=== PATIENT | male | born 1945 | race Caucasian/White ===

== ENCOUNTER 2016-08-08 10:41 | Inpatient (IN) | payer MEDICARE, BC ==
[~2016-08-08] VITALS: Ht 177.8 cm; Wt 89.6 kg
[2016-08-08] VITALS (15 sets, daily range): BP systolic 121–160; BP diastolic 62–82; PULSE 60–108; RESP 12–18; Ht 177.8 cm; Wt 89.6 kg
[2016-08-08] MEDS ORDERED: SURGIFOAM POWDER 1 GM KIT ONE (11:53)
[2016-08-08] MEDS ORDERED: CEFAZOLIN 1 GM INJ ONE ×2 (11:53→15:54)
[2016-08-08] MEDS ORDERED: HEPARIN 1000 UNITS/ML 10 ML INJ ONE (11:53)
[2016-08-08] MEDS ORDERED: THROMBIN 5000 UNIT VIAL ONE (11:53)
[2016-08-08] MEDS ORDERED: BUPIVACAINE 0.25%/EPI (SDV) 30 ML INJ ONE (12:21)
[2016-08-08] MEDS ORDERED: FENTAnyl 50 MCG/ML VIAL ONE (12:27)
[2016-08-08] MEDS ORDERED: MIDAZOLAM 1 MG/ML 2 ML INJ ONE ×2 (12:27→17:07)
[2016-08-08] MEDS ORDERED: PHENYLephrine (100 MCG/ML) 5ML SYG ONE (13:02)
[2016-08-08] MEDS ORDERED: LIDOCAINE 2% (SDV) 5 ML INJ ONE (15:54)
[2016-08-08] MEDS ORDERED: ROCURONIUM 50 MG INJ ONE (15:54)
[2016-08-08] MEDS ORDERED: SUCCINYLCHOLINE CHLORIDE 100 MG/5 ML SYG IV ONE (15:54)
[2016-08-08] MEDS ORDERED: EPHEDrine SULFATE 50 MG/5 ML SYG ONE (15:54)
[2016-08-08] MEDS ORDERED: NEOSTIGMINE 3 MG/3 ML SYRINGE ONE (15:54)
[2016-08-08] MEDS ORDERED: GLYCOPYRROLATE 0.4 MG INJ ONE (15:54)
[2016-08-08] MEDS ORDERED: PROPOFOL 40 ML ONE (15:54)
--- NOTE | 2016-08-08 16:21 | OPR ---
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 Anterior lumbar interbody fusion L5-S1 2. Osteotomy L5-S1 3. Insertion interbody cage x 1 (Globus Indeoendence MIS 29 x 39 mm 15 degree lordotic 13 mm height cage 4. Placement of anterior instrumentation (Lumbar Anchors x3) Anesthesia: General Surgeon: Charly Woodard MD CoSurgeon: Rob Maki MD Indication for surgery: Patient known to me, with severe long standing LBP and Left lower extremity L5 radiculopathy extremity pain that failed to improve with conservative management. Risk and benefits if procedure discussed in detail and informed consent obtained. Procedure: the patient was brought to the operating room and after general anesthesia with endotracheal intubation was smoothly induced, the patient was positioned on the operative table. The arms were put to the side and the patient 's left flank and abdomen were prepped and draped in the usual fashion. Antibiotics were given and incision was made at the paramedian approach at L5- S1. After the exposure was completed, I performed a discectomy at L5-S1. The appropriate disc space was verified using fluoroscopy and spinal needle. The disc was incised using a sharp knife and a Macario elevator was used to elevate up the endplates. I then used a rongeur to remove the disc material and curved and straight curettes to evacuate the disc space. Osteotome was used to cut the bridging osteophytes to gain mobility. I then used the trial rasps to prepare and size the disc space and was able to place a 13 mm spacer. I then trialed a 15 deg lordotic size large cage.. This were checked for fit and placement under C arm control and I felt the 15 lordotic 13 mm cage large cage gained good lordosis and was an appropriate fit. I inserted the cage, filled with local bone from the osteotomy, , allograft bone chips and an extra small BMP. The lumbar anchors were placed under fluoro imaging. Additional frozen allograft was placed around and anterior to the cage in the disc space. I then removed the retractors. The wound was inspected for bleeders. The wound was irrigated. Sterile dressing was applied. EBL:150 mL Procedure Date: Aug 08, 2016 Anesthesia: general Estimated Blood Loss: 150 - 200 ml's Pt Condition Post Procedure: stable Disposition: PACU CHARLY WOODARD MD Aug 08, 2016 16:21
[2016-08-08] MEDS ORDERED: HYDROmorphONE (0.2 MG/ML) 10ML SYG IV PRN ×3 (16:30)
[2016-08-08] MEDS ORDERED: MEPERIDINE 25 MG INJ IV PRN (16:30)
[2016-08-08] MEDS ORDERED: FENTAnyl 50 MCG/ML VIAL IV PRN ×3 (16:30)
[2016-08-08] MEDS ORDERED: PROCHLORPERAZINE 10 MG TAB PO PRN (16:30)
[2016-08-08] MEDS ORDERED: NACL 0.9% 3 ML SYG IV SCH (16:30)
[2016-08-08] MEDS ORDERED: DIPHENHYDRAMINE 50 MG INJ IV PRN (16:30)
[2016-08-08] MEDS ORDERED: METOCLOPRAMIDE 10 MG INJ IV PRN (16:30)
[2016-08-08] MEDS ORDERED: NALOXONE (0.4 MG/ML) INJ IV PRN (16:30)
[2016-08-08] MEDS ORDERED: ONDANSETRON 4 MG INJ IV PRN ×2 (16:30)
[2016-08-08] MEDS ORDERED: ACETAMINOPHEN 325 MG TAB PO PRN (16:30)
--- NOTE | 2016-08-08 16:32 | RADRPT ---
PROCEDURE: Intraoperative imaging of the lumbar spine with fluoroscopy. CLINICAL INDICATION: Back pain. Intraoperative. TECHNIQUE: 2 images of the lumbar spine were obtained in the operating room with an image intensif ier. No radiologist was in attendance. 32.5 seconds of fluoroscopy time was used. COMPARISON: No prior study is available for comparison. FINDINGS: For the purposes of this report, the last apparent true disc level is considered to be L5-S1. Based on this, the fusion is at L5-S1. IMPRESSION: 1. Intraoperative imaging of the lumbar spine. RPTAT: QQ .Joel White MD, Date Time Electronically viewed and signed by .Joel White MD, on 08/08/2016 16:32 .R/
[2016-08-08] MEDS: HYDROmorphONE 0.2 MG/ML PCA IV SCH (16:42)
[2016-08-08 17:06] LABS: ADD UMIC YES; URINE BILIRUBIN (Dip) NEGATIVE (NEGATIVE); URINE BLOOD (Dip) 2+ (NEGATIVE); URINE COLOR YELLOW (YELLOW); URINE GLUCOSE (Dip) NEGATIVE (NEGATIVE); URINE KETONES (Dip) TRACE (NEGATIVE); URINE LEUKOCYTE ESTERASE (Dip) TRACE (NEGATIVE); URINE NITRITE (Dip) NEGATIVE (NEGATIVE); URINE TOTAL PROTEIN (Dip) TRACE (NEGATIVE); URINE UROBILINOGEN (Dip) 0.2 E.U./dL (0.1-1.0)
[2016-08-08 17:19] LABS: BACTERIA,URINE FEW; SQUAMOUS EPITHELIAL CELL,UR RARE
[2016-08-08] MEDS ORDERED: MIDAZOLAM 1 MG/ML 2 ML INJ IV ONE ×2 (17:30→18:00)
[2016-08-08] MEDS: CEFAZOLIN 1 GM/50 ML (PMX) 50 ML IVPB SCH (17:45)
--- NOTE | 2016-08-08 18:27 | OPR ---
DATE OF OPERATION: 08/08/2016 PREOPERATIVE DIAGNOSIS: Degenerative disk disease L5 to S1. POSTOPERATIVE DIAGNOSIS: Degenerative disk disease L5 to S1. PROCEDURE: Anterior retroperitoneal exposure, interbody fusion L5 to S1. SURGEON: Kami Duong MD COSURGEON: Orville Nieves MD ESTIMATED BLOOD LOSS: 100 mL. ANESTHESIA: General. CONSENT: Risks, benefits, complications, alternative therapies explained to the patient and the fam ijeoma, consent obtained. DESCRIPTION OF PROCEDURE: Timeout was called, antibiotics were given, we started. I made an 8 cm incision in the left lower quadrant. Incision was taken down to the subcutaneous tis kathrine, which was opened using electrocautery. Left anterior rectus sheath was opened using electrocau yuriy. The rectus sheath was mobilized superiorly and inferiorly. Retroperitoneal space was entered . Bookwalter retractor was placed retracting the bowel contents to the right, left rectus muscle to the left. We then proceeded with dissecting the left common iliac artery, external iliac artery, i nternal iliac artery. We ligated the middle sacral vessels. Exposure for L5 to S1 was obtained by retracting the right iliac vessels to the right and left iliac vessels to the left. We proceeded with diskectomy and placement of the new cage. Please refer to Dr. Nieves's dictat ion for the details of that operation. After all x-rays were satisfactory read by Dr. Nieves, ne edle counts and sponge counts were correct. There was good pulsation in the left common and externa l iliac artery. No evidence of any clinical DVT. The wound was irrigated using antibiotic solution . Anterior rectus sheath was closed using a #1 Vicryl suture in a running fashion with a few interr upted sutures in the middle. The wound was irrigated again and closed in 2 layers of 2-0 Vicryl sut ure for the subcutaneous and Steri-Strips for the skin. The patient tolerated the procedure well. Dictated By: KAMI DUONG MD FM/NTS Conf#: [id number] DID#: [id number]
[2016-08-09 00:01] VITALS: BP 130/64; RESP 20
[2016-08-09] MEDS: CEFAZOLIN 1 GM/50 ML (PMX) 50 ML IVPB SCH ×3 (00:30→11:24)
[2016-08-09] MEDS: HYDROmorphONE 0.2 MG/ML PCA IV SCH (05:34)
[2016-08-09 05:41] LABS: HEMATOCRIT 45.5 % (42.0-52.0); HEMOGLOBIN 15.6 g/dl (14.0-18.0)
[2016-08-09 05:56] LABS: POTASSIUM 4.5 mmol/L (3.5-5.1)
[2016-08-09 05:59] LABS: CALCIUM 9.4 mg/dl (8.4-10.2); CREATININE 1.04 mg/dl (0.61-1.24)
[2016-08-09 07:22] VITALS: BP 119/74; RESP 17
[2016-08-09] MEDS ORDERED: TAMSULOSIN (SR) 0.4 MG CAP PO SCH ×2 (08:30→21:00)
[2016-08-09] MEDS: HYDROCODONE/APAP (5/325) TAB PO PRN ×3 (08:49→20:06)
[2016-08-09] MEDS: DOCUSATE SODIUM 100 MG CAP PO SCH (20:06)
[2016-08-09 20:10] VITALS: BP 141/76; RESP 17
--- NOTE | 2016-08-09 20:32 | PN ---
Date/Time of Note Date/Time of Note DATE: 08/09/16 TIME: 20:31 Assessment/Plan Lines/Catheters IV Catheter Type (from Nrsg): Peripheral IV Stanton in Place (from Nrsg): No Assessment/Plan Chief Complaint/Hosp Course SP ALIF will continue ambulation pulm toilet Adv Diet as tolerated Problems: Subjective 24 Hr Interval Summary Constitutional: improved Pain Control: mild Exam/Review of Systems Vital Signs Vitals Vital Signs Date Time Temp Pulse Resp B/P Pulse Ox O2 Delivery O2 Flow Rate FiO2 08/09/16 13:00 18 08/09/16 07:22 97.9 77 119/74 96 08/08/16 18:42 Nasal Cannula 2.0 Intake and Output 08/08/16 08/08/16 08/09/16 15:00 23:00 07:00 Intake Total 1000 ml 220 ml Output Total 500 ml 450 ml Balance 500 ml -230 ml Exam Neck: non-tender, supple Respiratory: clear to auscultation, normal air movement Cardiovascular: nl pulses, regular rate and rhythm Results Result Diagram: 08/09/16 0445 08/09/16 0442 KAMI CROOK MD Aug 09, 2016 20:32
[2016-08-09] MEDS: ZOLPIDEM 5 MG TAB PO PRN (22:17)
[2016-08-10] MEDS: HYDROCODONE/APAP (5/325) TAB PO PRN ×6 (00:21→21:33)
--- NOTE | 2016-08-10 09:02 | RADRPT ---
PROCEDURE: XR lumbar spine CLINICAL INDICATION: Postop lumbar spine surgery TECHNIQUE: 2 views of the lumbar spine were obtained COMPARISON: Intraoperative fluoroscopy 08/08/2016 FINDINGS: Postoperative changes present with interbody spacer associated fixation screws at the L5-S1 level. Hardware is intact. There are overlying anterior surgical clips. No fracture is seen. There is mi ld levoconvex scoliosis with preservation of the lordosis of the lumbar spine. Alignment appears in tact. Vertebral bodies are maintained in height. Anterior spondylosis is seen down to the L4-5 lev el. There is mild disk space narrowing at L2-3. IMPRESSION: Status post interbody fusion at L5-S1. Lumbar spondylosis, with mild levoconvex scoliosis. RPTAT: VV .Won Humphrey MD, Date Time Electronically viewed and signed by .Won Humphrey MD, on 08/10/2016 09:01 .O/
[2016-08-10] MEDS: DOCUSATE SODIUM 100 MG CAP PO SCH ×2 (09:05→21:02)
[2016-08-10 10:32] VITALS: BP 131/63; RESP 18
[2016-08-10] MEDS: RANITIDINE 150 MG TAB PO SCH ×2 (12:50→21:00)
--- NOTE | 2016-08-10 18:31 | PN ---
Date/Time of Note Date/Time of Note DATE: 08/10/16 TIME: 18:30 Assessment/Plan Lines/Catheters IV Catheter Type (from Nrsg): Peripheral IV Stanton in Place (from Nrsg): No Assessment/Plan Chief Complaint/Hosp Course SP ALIF will continue ambulation pulm toilet Adv Diet as tolerated Problems: Subjective 24 Hr Interval Summary Constitutional: improved Pain Control: mild Exam/Review of Systems Vital Signs Vitals Vital Signs Date Time Temp Pulse Resp B/P Pulse Ox O2 Delivery O2 Flow Rate FiO2 08/10/16 10:32 98.2 80 18 131/63 96 08/09/16 20:10 Room Air 08/08/16 18:42 2.0 Intake and Output 08/09/16 08/09/16 08/10/16 14:59 22:59 06:59 Intake Total 50 ml 800 ml 700 ml Output Total 100 ml 1400 ml Balance 50 ml 700 ml -700 ml Exam ENMT: mucosa pink and moist, nl external ears & nose, nl lips & teeth, nl nasal mucosa & septum Neck: non-tender, supple Respiratory: clear to auscultation, normal air movement Cardiovascular: nl pulses, regular rate and rhythm Results Result Diagram: 08/09/16 0445 08/09/16 0442 KAMI CROOK MD Aug 10, 2016 18:31
[2016-08-10 19:00] VITALS: BP 142/85; RESP 19
[2016-08-10] MEDS: TAMSULOSIN (SR) 0.4 MG CAP PO SCH (21:02)
[2016-08-11] MEDS: HYDROCODONE/APAP (5/325) TAB PO PRN ×5 (01:24→20:36)
[2016-08-11] MEDS: ZOLPIDEM 5 MG TAB PO PRN (02:15)
[2016-08-11 07:56] VITALS: BP 124/77; RESP 18
[2016-08-11 08:02] VITALS: BP 107/53; RESP 18
[2016-08-11 08:08] VITALS: BP 135/87; RESP 18
[2016-08-11] MEDS: DOCUSATE SODIUM 100 MG CAP PO SCH ×2 (08:13→20:27)
[2016-08-11] MEDS: RANITIDINE 150 MG TAB PO SCH ×2 (08:23→20:27)
--- NOTE | 2016-08-11 12:54 | PDOCDIS ---
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
[2016-08-11] MEDS ORDERED: DOCU-144 PO (12:59)
[2016-08-11] MEDS ORDERED: TAMS-14 PO (12:59)
[2016-08-11] MEDS ORDERED: HYDR-3498 PO (12:59)
[2016-08-11 19:58] VITALS: BP 125/79; RESP 19
[2016-08-11] MEDS: TAMSULOSIN (SR) 0.4 MG CAP PO SCH (20:27)
[2016-08-11] MEDS ORDERED: BISACODYL 10 MG SUPP PR PRN (21:00)
[2016-08-11] MEDS ORDERED: MAGNESIUM HYDROXIDE 30ML CUP PO PRN (21:00)
[2016-08-11 21:04] VITALS: PULSE 90
[2016-08-12] MEDS: ZOLPIDEM 5 MG TAB PO PRN (02:44)
[2016-08-12] MEDS: HYDROCODONE/APAP (5/325) TAB PO PRN ×2 (02:45→08:26)
[2016-08-12 07:56] VITALS: BP 113/60; RESP 20
[2016-08-12] MEDS: DOCUSATE SODIUM 100 MG CAP PO SCH (08:26)
[2016-08-12] MEDS: RANITIDINE 150 MG TAB PO SCH ×2 (08:26→08:28)
[2016-08-12 08:35] VITALS: BP 138/76; PULSE 90; RESP 18
== END 2016-08-12 10:15 | disposition home or self-care (01) | DRG 460 ==
LOC: REC 10:41 → MS1 18:15
PROVIDERS: ADMIT Orthopaedic Surgery; ATTEND Orthopaedic Surgery
PROC: 0SB40ZZ Excision of Lumbosacral Disc, Open Approach (ICD-10-PCS; 2016-08-08)
PROC: 0SG30A0 Fusion of Lumbosacral Joint with Interbody Fusion Device, Anterior Approach, Anterior Column, Open Approach (ICD-10-PCS; principal; 2016-08-08 12:30)
DX: M51.17 Intervertebral disc disorders with radiculopathy, lumbosacral region (principal); M47.27 Other spondylosis with radiculopathy, lumbosacral region; M48.07 Spinal stenosis, lumbosacral region
CPT/HCPCS: 72100; 80048; 81001; 81003; 85014; 85018; 86850; 86900; 86901; 86920; 97116; 97163; 97530; A4310; C1762; J0330; J0690; J1170; J1200; J1644; J2175; J2250; J2370; J2710; J3010; L8699

== ENCOUNTER 2016-08-26 08:13 | Inpatient (IN) | payer MEDICARE, BC ==
[~2016-08-26] VITALS: Ht 177.8 cm; Wt 92.9 kg
[2016-08-26 09:00] VITALS: BP 155/80; PULSE 83; RESP 18
[2016-08-26] MEDS ORDERED: HYDROmorphONE 1 MG/ML SYG IV STA (09:15)
[2016-08-26] MEDS ORDERED: HYDROmorphONE 1 MG/ML SYG IV PRN (09:30)
[2016-08-26] MEDS ORDERED: HYDROmorphONE 0.2 MG/ML PCA IV SCH (09:30)
[2016-08-26] MEDS: HYDROmorphONE 0.2 MG/ML PCA IV SCH ×2 (11:17→20:55)
[2016-08-26] MEDS ORDERED: GABAPENTIN 300 MG CAP PO SCH ×2 (12:00)
--- NOTE | 2016-08-26 12:19 | RADRPT ---
PROCEDURE: CT lumbar spine without contrast. CLINICAL INDICATION: Postop, back pain, anterior fusion L5-S1 TECHNIQUE: CT of the lumbar spine without contrast was performed on a multidetector CT scanner, wi th multiplanar reformats. One or more of the following dose reduction techniques were used: Automat ed exposure control, adjustment in mA and / or kV according to patient size, use of iterative recons tructive technique. CTDIvol = 26 mGy and DLP = 858 mGy-cm. COMPARISON: Lumbar spine radiographs 08/10/2016 FINDINGS: No fracture or dislocation is identified. There is preservation of the lordosis of the lumbar spine . There is minimal levoconvex curvature. There is trace retrolisthesis of L2 and L3. The vertebra l bodies are maintained in height. There is multilevel anterior spondylosis. Bones appear osteopen ic. Minimal atherosclerotic calcifications are seen. T12-L1: The disc is maintained in height. No disk bulge or herniation is seen. There is no central canal stenosis or foraminal narrowing. L1-L2: The disc is maintained in height. No disk bulge or herniation is seen. There is facet arthr opathy. There is no central canal stenosis or foraminal narrowing. L2-L3: The disc is maintained in height. There is mild posterior disk bulging, and facet arthropath y. There is no central canal stenosis or significant foraminal narrowing seen. L3-L4: The disk is maintained in height. There is mild posterior disk bulging and facet arthropathy . There is no central canal stenosis or significant foraminal narrowing seen. L4-L5: The disc is maintained in height. There is post disk bulging and facet arthropathy. There i s no central canal stenosis. There is mild right and mild-moderate left foraminal narrowing. L5-S1: There has been interbody fusion with spacer at the left aspect of the disk space and associat ed fixation screws. There are adjacent postoperative changes anteriorly with clips, and radiodensit y in the anterior left paraspinal region extending into the presacral region with adjacent stranding . No focal fluid collection is seen. There is also a left laminotomy and medial facetectomy with a djacent radiodensity. Hardware is intact and in satisfactory position without surrounding lucency th ere is density in and adjacent to the spacer which probably reflects graft material. No definite ro bust solid interbody fusion is seen. There is a broad posterior disk/osteophyte. There is facet ar thropathy. There is no central canal stenosis. There is mild to moderate bilateral foraminal narro wing. IMPRESSION: 1. Postoperative changes, status post L5-S1 interbody fusion and left laminotomy/medial facetectomy described above. 2. No central canal stenosis. 3. Foraminal narrowing detailed above. 4. Lumbar spondylosis. 5. Osteopenia. RPTAT: EE .Won Humphrey MD, Date Time Electronically viewed and signed by .Won Humphrey MD, on 08/26/2016 12:18 .O/
--- NOTE | 2016-08-26 15:36 | RADRPT ---
PROCEDURE: MRI lumbar spine without contrast. CLINICAL INDICATION: Postop, back pain, anterior L5-S1 fusion, left leg pain along L5 distribution without weakness or numbness TECHNIQUE: Multiplanar MRI of the lumbar spine without contrast was performed on a 3.0 T scanner ut ilizing the following sequences: T1-weighted, T2-weighted, STIR. COMPARISON: CT lumbar spine 08/26/2016 FINDINGS: There is preservation of the lordosis of the lumbar spine. Alignment is intact. The vertebral bodi es are maintained in height. There is susceptibility artifact related to the interbody fusion hardw are at L5-S1. Mild type 2 endplate modic changes are seen at L2-3. Anterior spondylosis is again n oted. There is relative decreased disk intranuclear T2-weighted signal intensity at L2-3 through L4 -5. The tip of the conus medullaris is visible at the T12-L1 level and appears unremarkable. T12-L1: The disc is maintained in height. No disc bulge or herniation is identified. There is no c entral canal stenosis or foraminal narrowing. L1-L2: The disc is maintained in height. No disc bulge or herniation is identified. There is face t arthropathy. There is no central canal stenosis or foraminal narrowing. L2-L3: The disc is maintained in height. There is mild posterior disk bulging and facet arthropath y. There is no central canal stenosis. No foraminal narrowing is seen. L3-L4: The disc is maintained in height. There is mild posterior disk bulging and facet arthropath y. There is no central canal stenosis. There is mild right foraminal narrowing. L4-L5: The disc is maintained in height. There is posterior disk bulging and facet arthropathy. T here is no central canal stenosis. There is mild right and mild-moderate left foraminal narrowing. L5-S1: Again noted is susceptibility artifact from interbody fusion hardware, and there is also a l eft laminotomy/medial facetectomy defect. There is a broad posterior disk/osteophyte and facet arth ropathy. There is no central canal stenosis. The left foramen appears moderately narrowed. No def inite nerve root compression is seen, specifically involving the left L5 nerve root. The exiting le ft L5 nerve root appears mildly prominent and slightly hyperintense on STIR, as possibly reflecting irritation. There is mild-moderate right foraminal narrowing. Noted is heterogeneous signal in the left anterolateral paraspinal region extending into the left presacral region, corresponding to pos toperative changes noted on CT. IMPRESSION: 1. At L5-S1, status post L5-S1 interbody fusion and left laminotomy / medial facetectomy. Moderate appearing left foraminal narrowing without definite compression of the exiting left L5 nerve root, which appears slightly mildly prominent and slightly hyperintense, possibly reflecting irritation. Mild to moderate right foraminal narrowing. No central stenosis. 2. Additional foraminal narrowing detailed above. 3. Lumbar spondylosis. Results called to Dr. WOODARD at 03:30 p.m., 08/26/2016. RPTAT: EE .Won Humphrey MD, Date Time Electronically viewed and signed by .Won Humphrey MD, on 08/26/2016 15:35 .O/
[2016-08-26] MEDS ORDERED: oxyCODONE (CR) 10 MG TAB [oxyCONTIN] PO SCH (18:00)
[2016-08-26] MEDS ORDERED: METHYLPREDNISOLONE 4 MG TAB PO ONE ×2 (18:00)
--- NOTE | 2016-08-26 18:22 | HP ---
DATE OF ADMISSION: 08/26/2016 CHIEF COMPLAINT: Left leg pain. HISTORY OF PRESENT ILLNESS: The patient is a pleasant 70-year-old male with a past surgical history significant for an anterior lumbar interbody fusion at L5-S1 for severe left foraminal stenosis wit h L5 radiculopathy on 08/08/2016. The patient had an uncomplicated hospital course after this proce dure and was discharged on postoperative day #3. The patient ran out of pain medications last night and complained of intractable postoperative pain. His pain failed to resolve with p.o. pain prescr iptions. Given the significance of the patient's pain, he was admitted for observation. A CT scan of the lumbar spine was performed to evaluate for left-sided foraminal stenosis at L5-S1 given the d istribution of the pain. He was placed on a DROP MAN and his pain was under control. He denies any sign ificant weakness. He reports the numbness has continued to improve after the operation. PAST MEDICAL HISTORY: Significant for gastroesophageal reflux disease, mild BPH. PAST SURGICAL HISTORY: 1. Anterior lumbar interbody fusion performed on 08/08/2016. 2. Left-sided L5-S1 hemilaminectomy and medial facetectomy performed at an outside institution nataliia ral years ago. ALLERGIES: PATIENT HAS NO KNOWN DRUG ALLERGIES. MEDICATIONS: 1. Medrol Dosepak. 2. Neurontin 300 mg p.o. b.i.d. 3. Hopedale 5/325 mg p.o. 1 to 2 tabs q.4-6h. 4. Ambien p.r.n. insomnia. FAMILY HISTORY: Noncontributory. SOCIAL HISTORY: Patient is . He denies tobacco, alcohol or illicit drug use. PHYSICAL EXAMINATION: VITAL SIGNS: The patient is afebrile. Vital signs are stable. GENERAL: Patient is alert and oriented x3 in mild distress. EXTREMITIES: The patient has +2 dorsalis pedis and posterior tibial pulses bilaterally. He has lamar sk cap refill in all digits in his lower extremities. SKIN: The patient has no rashes. His surgical anterior incision site is well healed with no erythe ma or evidence of drainage. LUNGS: The patient is breathing comfortably on room air. SPINE: The patient has 5/5 strength in the bilateral hip flexors, knee extensors and his righ t EHL is 5/5. His left EHL is 4/5. Gross sensation to light touch is intact in L3-S1 dermatomes. The patient has a negative Babinski, no clonus. He has +1 bilateral patellar and Achilles tendon re flexes. ABDOMEN: His abdomen is soft, nontender, nondistended. IMAGING: CT of the lumbar spine was performed which shows that the anterior lumbar interbody fusion cage is appropriately in the disk space. There is no evidence of gross foraminal stenosis on the l eft. The patient has evidence of a prior left-sided hemilaminectomy at L5 with a partial medial fac etectomy at this level. The patient has mild to moderate displaced collapse at L4-L5 with mild to m oderate bilateral foraminal stenosis. ASSESSMENT: The patient is a pleasant 70-year-old male presenting with intractable pain after under going an anterior lumbar interbody fusion procedure. He ran out of pain medications last night and his pain was unable to be controlled with p.o. pain medications and therefore he was admitted for 23 -hour observation and imaging to better help discern the etiology of these symptoms. PLAN: Currently, the patient is pending an MRI of the lumbar spine in order to ensure that the L5 n erve root does not have any significant impingement given the dermatomal distribution of his pain. He currently has some mild weakness in the left EHL which he reports has been improving. He also re ports a history of some mild numbness and tingling in the L5 nerve distribution which also appears t o be improving in nature. He does, however, complain of significant neuropathic pain in the L5 nerv e distribution. At this time, we will place him on a DROP MAN for pain control. We will start him on Ox yContin 10 mg p.o. b.i.d. We will place him on Hopedale 5/325 mg p.r.n. pain starting tomorrow. We wi ll also increase his dosage of Neurontin to 300 mg in the a.m., 600 mg in the afternoon and 600 mg i n the p.m. Dictated By: CHARLY MACKENZIE/ALONSO Conf#: [id number] DID#: [id number]
[2016-08-26 20:31] VITALS: BP 127/68; RESP 18
[2016-08-26] MEDS: GABAPENTIN 300 MG CAP PO SCH (20:55)
[2016-08-27] MEDS: oxyCODONE (CR) 10 MG TAB [oxyCONTIN] PO SCH ×2 (05:11→17:44)
[2016-08-27 07:52] VITALS: BP 142/69; RESP 18
[2016-08-27] MEDS: GABAPENTIN 300 MG CAP PO SCH ×3 (08:38→20:23)
[2016-08-27] MEDS: HYDROCODONE/APAP (5/325) TAB PO PRN ×4 (09:18→23:18)
[2016-08-27] MEDS: HYDROmorphONE 0.2 MG/ML PCA IV SCH (10:26)
[2016-08-27] MEDS: DOCUSATE SODIUM 100 MG CAP PO SCH ×2 (12:38→20:23)
--- NOTE | 2016-08-27 15:31 | PDOCDIS ---
Discharge Instructions CONDITION Patient Condition: Good HOME CARE INSTRUCTIONS: Diet Instructions: RegularSpecial Diet: Regular Diet ACTIVITY: Activity Restrictions: Avoid heavy lifting Bathing Restrictions: Shower FOLLOW UP/APPOINTMENTS Appointments Follow-up with Dr. Woodard in 1-2 weeks CHARLY WOODARD MD Aug 27, 2016 15:31
[2016-08-27] MEDS ORDERED: DOCU-144 PO (15:35)
[2016-08-27] MEDS ORDERED: GABA300C16 PO (15:36)
[2016-08-27] MEDS ORDERED: HYDR-3498 PO (15:36)
[2016-08-27] MEDS ORDERED: OXYC10TA63 PO ×2 (15:36→15:51)
[2016-08-27] MEDS ORDERED: HYDR-906 PO (15:51)
[2016-08-27] MEDS ORDERED: GABA600T PO (15:52)
[2016-08-27] MEDS ORDERED: GABA300C PO (15:53)
[2016-08-27 16:03] VITALS: BP 137/56; PULSE 78; RESP 18
[2016-08-27] MEDS ORDERED: TAMS0.4C2 PO (16:05)
--- NOTE | 2016-08-27 19:05 | PN ---
DATE: HISTORY OF PRESENT ILLNESS: The patient is a 70-year-old male who was admitted for severe pain. He has a past surgical history significant for an L5-S1 anterior lumbar interbody fusion performed on 08/08/2016. Since his admission, his pain has significantly improved. 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 He was started on OxyContin 10 mg p.o. b.i.d. He has been taking Foster 5/325 mg p.o. q.3h. p.r.n. pain. We have also increased his Neurontin. He reports that his pain now ranges from a 2 to 5/10 in intensity. He reports that he feels increased strength in his left lower extrem ity. He also reports that the numbness has also continued to significantly improve. PHYSICAL EXAMINATION: GENERAL: He is alert and oriented x3, no acute distress. SPINE: The patient has 4+/5 strength in his left EHL; otherwise, he has 5/5 strength in all major m uscle groups. He has gross sensation to light touch intact in L3-S1 dermatomes bilaterally. He has a negative straight leg raise test. IMAGING: CT scan of the lumbar spine was performed that shows the graft is in good overall placemen t without evidence of any foraminal encroachment. The patient has some evidence of mild to moderate bilateral foraminal stenosis at this level. MRI of the lumbar spine was also performed, which fail ed to show significant encroachment of the L5 nerve root. There is some evidence of swelling and in flammation of the L5 nerve root, which may be postsurgical in nature. ASSESSMENT AND PLAN: The patient is a 70-year-old male who presented with intractable pain after un dergoing an anterior lumbar interbody fusion procedure approximately 3 weeks ago. PLAN: At this time, the patient's pain appears to be significantly improving. Imaging studies have failed to show any significant impingement or malalignment of the graft. I feel that this pain may be secondary to the fact that patient's numbness has continued to significantly improve after a rosario g history of severe left foraminal stenosis. This may be causing the increased incidence of recent pain, as his sensation has gradually returned. The Neurontin and OxyContin currently help to contro l his pain. We will likely discharge the patient tomorrow in the morning once his pain is under goo d control with p.o. pain medication. 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 We will disco ntinue the BRANDING MACHINE OPERATOR at 6:00 p.m. today. Dictated By: CHARLY MACKENZIE/ALONSO Conf#: [id number] DID#: [id number]
[2016-08-27 20:42] VITALS: BP 140/91; RESP 18
[2016-08-27] MEDS: HYDROmorphONE 1 MG/ML SYG IV PRN (21:47)
[2016-08-28] MEDS: HYDROCODONE/APAP (5/325) TAB PO PRN ×4 (02:18→23:14)
[2016-08-28] MEDS: HYDROmorphONE 1 MG/ML SYG IV PRN ×2 (04:18→09:56)
[2016-08-28] MEDS: oxyCODONE (CR) 10 MG TAB [oxyCONTIN] PO SCH ×2 (06:15→18:44)
[2016-08-28 07:51] VITALS: BP 157/92; RESP 18
[2016-08-28] MEDS: DOCUSATE SODIUM 100 MG CAP PO SCH ×2 (09:55→20:38)
[2016-08-28] MEDS: GABAPENTIN 300 MG CAP PO SCH ×3 (09:59→20:38)
[2016-08-28] MEDS ORDERED: KETOROLAC 30 MG INJ IV STA (12:24)
[2016-08-28] MEDS ORDERED: HYDROCODONE/APAP (5/325) TAB PO PRN (13:00)
[2016-08-28] MEDS ORDERED: DEXAMETHASONE 10 MG/ML 1 ML INJ IV ONE (16:00)
[2016-08-28 19:59] VITALS: BP 155/91; RESP 18
[2016-08-28] MEDS ORDERED: MAGNESIUM HYDROXIDE 30ML CUP PO PRN (20:00)
--- NOTE | 2016-08-28 20:39 | PN ---
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 He was admitted to the hospital this weekend for intractable postoperative left-sided leg pain. MRI and CT scan were performed, which s howed the implant to be in good overall position without evidence of severe foraminal stenosis on th e left. The patient's pain is currently being managed with OxyContin 10 mg p.o. b.i.d. and [place] 5/3 25 mg 1 to 2 tabs every 4 to 6 hours p.r.n. pain. The patient has also been on Neurontin 600 mg p.o . in the a.m. and p.m. and 300 mg p.o. in the afternoon. He reports the pain was severe last night and needed a dose of IV Dilaudid 0.5 mg p.r.n. He also had a good amount of pain this morning and r equired IV pain medication. A prescription for 30 mg IV Toradol was given today, which helped signi ficantly with his pain. Given the evidence of inflammation of the L5 nerve root on MRI, a 10 mg dos e of IV Decadron was also given today. The patient is currently resting comfortably and reports avtar t his leg pain has significantly improved and currently is 3/10 in intensity. OBJECTIVE: VITAL SIGNS: The patient is afebrile. Vital signs stable. SPINE: The patient has gross sensation to light touch intact in the L3-S1 nerve distributions bilat erally. MOTOR: The patient has 4+/5 strength in the left EHL. Otherwise, he has 5/5 strength in all major muscle groups. ASSESSMENT AND PLAN: A 70-year-old male admitted for postoperative intractable pain after undergoin g an L5-S1 anterior lumbar interbody fusion. The patient's postoperative intractable leg pain may b e secondary to nerve root decompression resulting in improved sensation and increased neuropathic pa in. The L5 nerve root irritation may also be secondary to radiculitis due to use of the MP. At thi s time, the patient appears to be improving with Toradol and IV Decadron. We will continue to monit or his pain for improvement using p.o. pain medications. If the patient is able to tolerate pain on a good p.o. regimen overnight, he will be discharged tomorrow in the a.m. Dictated By: CHARLY MACKENZIE/ALONSO Conf#: [id number] DID#: [id number]
[2016-08-29] MEDS: HYDROCODONE/APAP (5/325) TAB PO PRN ×3 (03:25→13:24)
[2016-08-29] MEDS: oxyCODONE (CR) 10 MG TAB [oxyCONTIN] PO SCH (05:32)
[2016-08-29] MEDS ORDERED: DEXAMETHASONE 10 MG/ML 1 ML INJ IV ONE (08:30)
[2016-08-29] MEDS: DOCUSATE SODIUM 100 MG CAP PO SCH (08:48)
[2016-08-29] MEDS: GABAPENTIN 300 MG CAP PO SCH ×2 (09:41→12:33)
[2016-08-29] MEDS ORDERED: KETOROLAC 30 MG INJ IV STA (13:15)
== END 2016-08-29 14:56 | disposition home or self-care (01) | DRG 948 ==
LOC: PP2 08:41 → INTOOBSV 12:45 → OBSVTOIN 12:45 → MS1 08-27 15:45
PROVIDERS: ADMIT Orthopaedic Surgery; ATTEND Orthopaedic Surgery
DX: G89.18 Other acute postprocedural pain (principal); M54.17 Radiculopathy, lumbosacral region; Z98.1 Arthrodesis status
CPT/HCPCS: 72131; 72148; 87081; G0378; J1100; J1170; J1885